=== PATIENT | female | born 1950 | race Caucasian/White ===

== ENCOUNTER 2017-07-12 10:17 | Inpatient (IN) | payer MEDICARE, OTHER, MEDICAID ==
[~2017-07-12] VITALS: Ht 160 cm; Wt 107.0 kg
[2017-07-12 10:36] LABS: BASOPHILS % (AUTO) 0.7 % (0.0-2.0); EOSINOPHILS # (AUTO) 0.1 K/uL (0.0-0.7); EOSINOPHILS % (AUTO) 1.4 % (0.0-7.0); HEMATOCRIT 28.7 % (31.2-41.9); HEMOGLOBIN 9.5 g/dL (10.9-14.3); LYMPHOCYTES # (AUTO) 1.7 K/uL (20.0-40.0); LYMPHOCYTES % (AUTO) 25.7 % (20.5-51.5); MEAN CORPUSCULAR HEMOGLOBIN 27.3 uug (24.7-32.8); MEAN CORPUSCULAR HGB CONC 33 g/dL (32.3-35.6); MEAN CORPUSCULAR VOLUME 82.4 fL (75.5-95.3); MONOCYTES # (AUTO) 0.6 K/uL (2.0-10.0); MONOCYTES % (AUTO) 9.4 % (0.0-11.0); NEUTROPHILS # (AUTO) 4.1 K/uL (1.8-8.9); NEUTROPHILS % (AUTO) 62.8 % (38.5-71.5); PLATELET COUNT (AUTO) 264 K/uL (179-408); RED BLOOD CELL COUNT(AUTO) 3.48 MIL/uL (3.63-4.92); WHITE BLOOD COUNT (AUTO) 6.5 K/uL (3.8-11.8)
[2017-07-12 10:37] LABS: *BILIRUBIN,URIN NEGATIVE (NEGATIVE); *BLOOD, URINE 2+ (NEGATIVE); *CLARITY,URINE CLEAR (CLEAR); *COLOR,URINE YELLOW (YELLOW); *KETONES,URINE NEGATIVE (NEGATIVE); *PROTEIN,URINE NEGATIVE (NEGATIVE); *UROBILINOGEN,URINE 0.2 E.U./dl (NORMAL); LEUKOCYTE ESTERASE ,URINE 1+ (NEGATIVE); NITRITE, URINE NEGATIVE (NEGATIVE); UGLUCOSE NEGATIVE (NEGATIVE)
[2017-07-12] MEDS ORDERED: ZOLP5TAB2 PO (10:41)
[2017-07-12] MEDS ORDERED: OMEP20CA10 PO (10:41)
[2017-07-12] MEDS ORDERED: LACT10SO PO (10:41)
[2017-07-12] MEDS ORDERED: ALBU2.5V13 NEB (10:41)
[2017-07-12] MEDS ORDERED: PREG75CA PO (10:41)
[2017-07-12 10:47] LABS: CARBON DIOXIDE 27 mmol/L (21-32); CHLORIDE 102 mmol/L (98-107); CREATININE 1.6 mg/dL (0.6-1.3); GLUCOSE 103 mg/dL (74-106); POTASSIUM 4.6 mmol/L (3.5-5.1); UREA NITROGEN, BLOOD 34 mg/dL (7-18)
[2017-07-12 10:50] LABS: ETHANOL < 3 MG/DL (0-0)
[2017-07-12 10:52] LABS: *AMPHETAMINE, URINE NEGATIVE (NEGATIVE); *BARBITURATE, URINE NEGATIVE (NEGATIVE); *CANNABINOID, URINE NEGATIVE (NEGATIVE); *COCCAINE, URINE NEGATIVE (NEGATIVE); *OPIATE, URINE POSITIVE (NEGATIVE); *PHENCYCLIDINE SCREEN,URINE NEGATIVE (NEGATIVE)
[2017-07-12 10:53] LABS: ALANINE AMINOTRANSFERASE 15 U/L (14-59); ALKALINE PHOSPHATASE 122 U/L (50-136); ASPARTATE AMINOTRANSFERASE 10 U/L (15-37); BILIRUBIN,DIRECT 0.1 mg/dL (0.0-0.2); BILIRUBIN,TOTAL 0.2 mg/dL (0.2-1.0); TOTAL PROTEIN, SERUM 7.1 g/dL (6.4-8.2)
[2017-07-12 10:55] LABS: ACETAMINOPHEN < 2.0 ug/mL (10-30)
[2017-07-12 10:56] LABS: BACTERIA,URINE FEW /HPF (NONE SEEN); RBC,URINE 0-3 /HPF (0-3); SQUAMOUS EPITHELIAL CELL,UR FEW /HPF (NONE SEEN)
--- NOTE | 2017-07-12 11:10 | NUR ---
Pt resting in [facility] with NAD noted, SBAR report given to Rosy HERNANDEZ in [facility] via telephone.
[2017-07-12] MEDS ORDERED: LEVO175T2 PO (11:22)
[2017-07-12] MEDS ORDERED: PROM6.25 PO (11:22)
[2017-07-12] MEDS ORDERED: CYAN10009 PO (11:22)
[2017-07-12] MEDS ORDERED: DIPH1TAB PO (11:22)
[2017-07-12] MEDS ORDERED: SENN-167 PO (11:22)
[2017-07-12] MEDS ORDERED: METF500T PO (11:22)
[2017-07-12] MEDS ORDERED: FERR325T28 PO (11:22)
[2017-07-12] MEDS ORDERED: POTA20LI4 PO (11:22)
[2017-07-12] MEDS ORDERED: HYDR-552 PO (11:22)
[2017-07-12] MEDS ORDERED: ONDA4TAB5 PO (11:22)
[2017-07-12] MEDS ORDERED: IPRA3AMP IH (11:22)
[2017-07-12] MEDS ORDERED: OXYB5TAB11 PO (11:22)
[2017-07-12] MEDS ORDERED: DULO60CA45 PO (11:22)
[2017-07-12] MEDS ORDERED: ACET-73 PO (11:22)
[2017-07-12] MEDS ORDERED: MAG30ORA GT (11:22)
[2017-07-12] MEDS ORDERED: DEXT15DR6 EACHEYE (11:22)
[2017-07-12] MEDS ORDERED: ERGO500040 PO (11:22)
[2017-07-12] MEDS ORDERED: DICL75TA5 PO (11:22)
[2017-07-12] MEDS ORDERED: ALBU18HF2 IH (11:22)
--- NOTE | 2017-07-12 11:36 | NUR ---
Per pt is medically clear and may be trans to [facility].
--- NOTE | 2017-07-12 11:50 | NUR ---
Pt trans to [facility], NAD noted.
--- NOTE | 2017-07-12 12:15 | NUR ---
patient in from [facility] via wheel chair. AAOX1-2. refusing with admission protocols. refusing to answer most of the questions. Stating "I don't wanna be here" . vitals signs stable no c/of pain. Both psychiatrist and attending physician notified by Charge R.N.
--- NOTE | 2017-07-12 12:27 | NUR ---
1215: CALLED DR. HERNANDEZ [facility]ERG[facility] PAGER FOR ADMITTING ORDER, BUT SAYS THE NUMBER IS NOT A WORKING NUMBER. CALLED 'S OFFICE AT [phone] SPOKE WITH AMANDA, SAID IS WITH ANOTHER PATIENT ADVISED TO CALL BACK AND LEAVE A MESSAGE. LEFT MESSAGE.
--- NOTE | 2017-07-12 12:36 | NUR ---
1230: LEFT MESSAGE TO [employer] [facility].
--- NOTE | 2017-07-12 12:49 | NUR ---
RECEIVED A CALL BACK FROM DR. JOHNSON.
[2017-07-12] MEDS ORDERED: MAGNESIUM HYDROXIDE 30 ML LIQUID UDC PO PRN (14:00)
[2017-07-12] MEDS ORDERED: ACETAMINOPHEN 325 MG TABLET PO PRN (14:00)
[2017-07-12] MEDS ORDERED: LORAZEPAM 0.5 MG TABLET PO PRN (14:00)
[2017-07-12] MEDS ORDERED: LORAZEPAM 1 MG TABLET PO PRN (14:15)
[2017-07-12 15:12] VITALS: BP 133/67
[2017-07-12] MEDS ORDERED: Medication Not On Formulary EA (Lactulose (Duphalac) 30 ML) PO PRN (18:30)
[2017-07-12] MEDS ORDERED: ONDANSETRON HCL 4 MG TABLET PO PRN (18:30)
[2017-07-12] MEDS ORDERED: ERGOCALCIFEROL 50,000 UNIT CAPSULE PO SCH (18:30)
[2017-07-12] MEDS ORDERED: ALBUTEROL SULFATE 8 GM HFA.AER.AD IH PRN (18:30)
[2017-07-12] MEDS ORDERED: LEVOTHYROXINE SODIUM 175 MCG TABLET PO SCH (18:30)
--- NOTE | 2017-07-12 18:46 | NUR ---
Psychiatrist Dr. Riveraw in to examine patient and orders to let social science analyst find placement for patient. message left for social science analyst by Demetra Lin. and will also endorse to incoming shift.
[2017-07-12] MEDS ORDERED: ALBUTEROL SULFATE 2.5 MG/3 ML NEBU NEB PRN (19:00)
[2017-07-12] MEDS ORDERED: LACTULOSE 20 G/30 ML LIQUID UDC PO PRN (19:15)
[2017-07-12 20:26] VITALS: BP 174/75
[2017-07-12] MEDS: METFORMIN HCL 500 MG TABLET PO SCH (21:02)
[2017-07-12] MEDS: OXYBUTYNIN CHLORIDE 5 MG TABLET PO SCH (21:03)
[2017-07-12] MEDS: PREGABALIN 25 MG CAPSULE PO SCH (21:03)
[2017-07-12] MEDS: DICLOFENAC 75 MG TABLET.DR PO SCH (21:03)
[2017-07-12] MEDS: CYANOCOBALAMIN 1,000 MCG TABLET PO SCH (21:05)
[2017-07-12] MEDS: ARIPIPRAZOLE 2 MG TABLET PO SCH (21:05)
[2017-07-12] MEDS: FERROUS SULFATE 325 MG TABEC PO SCH (21:07)
[2017-07-12 21:41] VITALS: BP 118/61
[2017-07-13] MEDS: MAG HYDROX/AL HYDROX/SIMETH 30 ML LIQUID UDC PO PRN (00:01)
--- NOTE | 2017-07-13 00:39 | NUR ---
Received patient laying comfortably in bed. Son at beside. A&O x 4. Walks with a front wheel walker. Noted bilateral foot and ankle edema. Safety initiated. bed is in low and locked position. Will closely monitor.
[2017-07-13] MEDS: PANTOPRAZOLE SODIUM 40 MG TABLET.DR PO SCH (06:04)
[2017-07-13] MEDS: LEVOTHYROXINE SODIUM 175 MCG TABLET PO SCH (06:04)
--- NOTE | 2017-07-13 06:12 | NUR ---
Patient slept t/o shift. A total of 9 hours. Patient was med compliant. C/O heart burn, meds given, stated relief. No behavioral issues. Patient was cooperative. B/P was elevated early on the shift. Re-checked, was stable. Urinated well t/o shift. Ambulated with a FWW. Noted bilateral foot edema. Non pitting. Safety and comfort measures maintained t/o shift. Room was kept clutter free. All meds given as ordered. All needs met.
[2017-07-13 07:11] LABS: BASOPHILS # (AUTO) 0.1 K/uL (0.0-8.0); BASOPHILS % (AUTO) 1.1 % (0.0-2.0); EOSINOPHILS # (AUTO) 0.1 K/uL (0.0-0.7); EOSINOPHILS % (AUTO) 2.6 % (0.0-7.0); HEMOGLOBIN 9.7 g/dL (10.9-14.3); LYMPHOCYTES # (AUTO) 1.6 K/uL (20.0-40.0); LYMPHOCYTES % (AUTO) 28.7 % (20.5-51.5); MEAN CORPUSCULAR HEMOGLOBIN 26.6 uug (24.7-32.8); MEAN CORPUSCULAR HGB CONC 32 g/dL (32.3-35.6); MEAN CORPUSCULAR VOLUME 82.2 fL (75.5-95.3); MONOCYTES # (AUTO) 0.4 K/uL (2.0-10.0); MONOCYTES % (AUTO) 7.2 % (0.0-11.0); NEUTROPHILS # (AUTO) 3.4 K/uL (1.8-8.9); NEUTROPHILS % (AUTO) 60.4 % (38.5-71.5); PLATELET COUNT (AUTO) 290 K/uL (179-408); RED BLOOD CELL COUNT(AUTO) 3.65 MIL/uL (3.63-4.92); WHITE BLOOD COUNT (AUTO) 5.6 K/uL (3.8-11.8)
[2017-07-13 08:00] VITALS: BP 156/69
[2017-07-13 08:08] LABS: BILIRUBIN,TOTAL 0.2 mg/dL (0.2-1.0); CREATININE 1.4 mg/dL (0.6-1.3); POTASSIUM 4.9 mmol/L (3.5-5.1); TOTAL PROTEIN, SERUM 6.9 g/dL (6.4-8.2)
[2017-07-13] MEDS ORDERED: Medication Not On Formulary EA (Omeprazole 1 CAP) PO SCH (09:00)
[2017-07-13] MEDS: ARIPIPRAZOLE 2 MG TABLET PO SCH (09:05)
[2017-07-13] MEDS: CYANOCOBALAMIN 1,000 MCG TABLET PO SCH (09:05)
[2017-07-13] MEDS: PREGABALIN 25 MG CAPSULE PO SCH ×2 (09:05→17:21)
[2017-07-13] MEDS: METFORMIN HCL 500 MG TABLET PO SCH ×2 (09:05→17:21)
[2017-07-13] MEDS: DULOXETINE 60 MG CAPSULE.DR PO SCH (09:05)
[2017-07-13] MEDS: FERROUS SULFATE 325 MG TABEC PO SCH (09:06)
[2017-07-13] MEDS: OXYBUTYNIN CHLORIDE 5 MG TABLET PO SCH ×2 (09:06→17:21)
[2017-07-13] MEDS: DICLOFENAC 75 MG TABLET.DR PO SCH (09:07)
[2017-07-13] MEDS: CEPHALEXIN MONOHYDRATE 500 MG CAPSULE PO SCH ×3 (11:04→22:17)
--- NOTE | 2017-07-13 11:37 | NUR ---
NEW ORDERS NOTED FROM DR TYSON AT THIS TIME.
[2017-07-13] MEDS: AMLODIPINE 5 MG TABLET PO SCH (14:06)
--- NOTE | 2017-07-13 14:07 | NUR ---
PATIENT REMAIN ON ANTIBIOTICS ORDERED FOR URINARY TRACT INFECTION WITH NO ADVERSE OR ALLERGIC REACTIONS AT THIS TIME.PATIENT NOTIFIED OF NEW ORDER TO START BLOOD SUGAR CHECKS TWO TIMES A DAY BEFORE BREAKFAST AND BEFORE DINNER AND SHE EXPRESSED UNDERSTANDING.
[2017-07-13 16:00] VITALS: BP 160/67
[2017-07-13] MEDS: BLOOD SUGAR DIAGNOSTIC 1 EACH STRIP VI SCH (17:21)
[2017-07-13 17:34] LABS: *CREATININE,URINE 54.6 mg/dL (30-125); *URINE TOTAL PROTEIN RANDOM < 6.0 mg/dL (<150/24HR)
[2017-07-13 17:56] LABS: *BILIRUBIN,URIN NEGATIVE (NEGATIVE); *BLOOD, URINE NEGATIVE (NEGATIVE); *CLARITY,URINE CLEAR (CLEAR); *COLOR,URINE YELLOW (YELLOW); *KETONES,URINE NEGATIVE (NEGATIVE); *PROTEIN,URINE NEGATIVE (NEGATIVE); *UROBILINOGEN,URINE 0.2 E.U./dl (NORMAL); LEUKOCYTE ESTERASE ,URINE TRACE (NEGATIVE); NITRITE, URINE NEGATIVE (NEGATIVE); PH,URINE 5.5 (5.0-8.0); UGLUCOSE NEGATIVE (NEGATIVE)
--- NOTE | 2017-07-13 18:00 | NUR ---
RESTING IN BED AT THIS TIME DENIES PAIN OR DISCOMFORTS BLOOD SUGAR IS 114
[2017-07-13 19:51] LABS: RBC,URINE 0-3 /HPF (0-3); SQUAMOUS EPITHELIAL CELL,UR MODERATE /HPF (NONE SEEN)
[2017-07-13 20:00] VITALS: BP 133/70
[2017-07-13] MEDS: HYDROCODONE/APAP 5-325MG TABLET PO PRN (20:35)
--- NOTE | 2017-07-13 23:17 | NUR ---
PATIENT RECEIVED IN BED AWAKE. PATIENT CALM, AND COOPERATIVE. PATIENT COMPLAINT WITH MEDICATION. IN NO APPARENT DISTRESS WILL CONTINUE TO MONITOR. NO AGGRESSIVE OR COMBATIVE BEHAVIOR NOTED WILL CONTINUE TO MONITOR. PATIENT STATED HAVING 8/10 PAIN TO RIGHT HAND, NORCO 5/325MG GIVEN ORDERED WILL CONTINUE TO MONITOR. BED IN LOWEST POSITION, BED LOCKED, AND BED ALARM ON WHILE IN BED.
[2017-07-14] MEDS: MAG HYDROX/AL HYDROX/SIMETH 30 ML LIQUID UDC PO PRN ×3 (00:16→20:46)
[2017-07-14] MEDS: LEVOTHYROXINE SODIUM 175 MCG TABLET PO SCH (06:33)
[2017-07-14] MEDS: CEPHALEXIN MONOHYDRATE 500 MG CAPSULE PO SCH ×3 (06:33→21:00)
[2017-07-14] MEDS: PANTOPRAZOLE SODIUM 40 MG TABLET.DR PO SCH (06:33)
[2017-07-14] MEDS: BLOOD SUGAR DIAGNOSTIC 1 EACH STRIP VI SCH ×2 (06:52→17:08)
[2017-07-14 07:30] VITALS: BP 134/52
[2017-07-14 07:36] LABS: BASOPHILS # (AUTO) 0.1 K/uL (0.0-8.0); BASOPHILS % (AUTO) 1.1 % (0.0-2.0); EOSINOPHILS # (AUTO) 0.2 K/uL (0.0-0.7); HEMATOCRIT 31.7 % (31.2-41.9); HEMOGLOBIN 10.3 g/dL (10.9-14.3); MEAN CORPUSCULAR HEMOGLOBIN 26.9 uug (24.7-32.8); MEAN CORPUSCULAR HGB CONC 32 g/dL (32.3-35.6); MEAN CORPUSCULAR VOLUME 82.9 fL (75.5-95.3); MONOCYTES # (AUTO) 0.4 K/uL (2.0-10.0); NEUTROPHILS # (AUTO) 3.1 K/uL (1.8-8.9); NEUTROPHILS % (AUTO) 53.9 % (38.5-71.5); PLATELET COUNT (AUTO) 324 K/uL (179-408); RED BLOOD CELL COUNT(AUTO) 3.83 MIL/uL (3.63-4.92); WHITE BLOOD COUNT (AUTO) 5.8 K/uL (3.8-11.8)
[2017-07-14 07:59] LABS: BILIRUBIN,TOTAL 0.2 mg/dL (0.2-1.0); CREATININE 1.3 mg/dL (0.6-1.3); MAGNESIUM 2.1 mg/dL (1.8-2.4); PHOSPHOROUS 3.6 mg/dL (2.5-4.9); POTASSIUM 4.5 mmol/L (3.5-5.1); TOTAL PROTEIN, SERUM 7.5 g/dL (6.4-8.2)
[2017-07-14] MEDS ORDERED: ERGOCALCIFEROL 50,000 UNIT CAPSULE PO SCH (09:00)
[2017-07-14] MEDS: DULOXETINE 60 MG CAPSULE.DR PO SCH (09:03)
[2017-07-14] MEDS: AMLODIPINE 5 MG TABLET PO SCH (09:03)
[2017-07-14] MEDS: OXYBUTYNIN CHLORIDE 5 MG TABLET PO SCH ×2 (09:04→17:24)
[2017-07-14] MEDS: ARIPIPRAZOLE 2 MG TABLET PO SCH (09:04)
[2017-07-14] MEDS: FERROUS SULFATE 325 MG TABEC PO SCH (09:04)
[2017-07-14] MEDS: METFORMIN HCL 500 MG TABLET PO SCH (09:04)
[2017-07-14] MEDS: PREGABALIN 25 MG CAPSULE PO SCH ×2 (09:04→17:24)
[2017-07-14] MEDS: HYDROCODONE/APAP 5-325MG TABLET PO PRN ×2 (13:55→20:46)
--- NOTE | 2017-07-14 14:56 | NUR ---
Initial DC Plan: Patient currently resides at [facility] [[address], [place] [address]; ]. CATHY spoke with Ramón at [facility] who stated the facility cannot accept patient back due to aggressive behavior. CATHY will follow up with MD, patient, and patient's son Uche [[phone]] to discuss most appropriate discharge plans. SW will form a safe and proper discharge.
[2017-07-14 16:24] VITALS: BP 135/62
--- NOTE | 2017-07-14 18:26 | NUR ---
RECEIVED Pt IN DAY ROOM, A/O X 3, CLEAR SPEECH, PLEASANT, CALM, COMPLIANT WITH MEDS AND CARE STAFF. DR. HERNANDEZ SPOKE WITH Pt AND IS ON A VOLUNTARY HOLD UNTIL PLACEMENT IS CLEAR AND AGREED UPON. Pt REPORTED 8/10 PAIN ON LOWER BACK, NORCO 5/325 PO PRN WAS GIVEN @ 1355. NO AGGRESSIVE BEHAVIOR NOTED.
[2017-07-14 20:04] VITALS: BP 112/62
[2017-07-14] MEDS: ZOLPIDEM 5 MG TABLET PO PRN (22:37)
--- NOTE | 2017-07-15 05:44 | NUR ---
Patient slept 8.5 hours. No acute distress noted. Med complaint. Cooperative. No further behavioral issues observed. C/O back pain, meds given, stated relief. Noted edema on bilateral lower edema. BLE Elevated. Vital signs stable. All meds given as ordered. All needs met. Room was kept clutter free. Bed is in low and locked position.
[2017-07-15] MEDS: CEPHALEXIN MONOHYDRATE 500 MG CAPSULE PO SCH ×3 (06:01→21:05)
[2017-07-15] MEDS: PANTOPRAZOLE SODIUM 40 MG TABLET.DR PO SCH (06:01)
[2017-07-15] MEDS: LEVOTHYROXINE SODIUM 175 MCG TABLET PO SCH (06:01)
[2017-07-15] MEDS: BLOOD SUGAR DIAGNOSTIC 1 EACH STRIP VI SCH ×2 (06:30→15:50)
[2017-07-15 07:30] VITALS: BP 123/55
[2017-07-15] MEDS: PREGABALIN 25 MG CAPSULE PO SCH ×2 (08:26→16:07)
[2017-07-15] MEDS: DULOXETINE 60 MG CAPSULE.DR PO SCH (08:26)
[2017-07-15] MEDS: ARIPIPRAZOLE 2 MG TABLET PO SCH (08:26)
[2017-07-15] MEDS: FERROUS SULFATE 325 MG TABEC PO SCH (08:26)
[2017-07-15] MEDS: OXYBUTYNIN CHLORIDE 5 MG TABLET PO SCH ×2 (08:26→16:07)
[2017-07-15] MEDS: AMLODIPINE 5 MG TABLET PO SCH (08:27)
[2017-07-15] MEDS: HYDROCODONE/APAP 5-325MG TABLET PO PRN ×2 (11:33→21:05)
[2017-07-15 15:36] VITALS: BP 121/53
[2017-07-15] MEDS: MAG HYDROX/AL HYDROX/SIMETH 30 ML LIQUID UDC PO PRN ×2 (16:07→22:38)
--- NOTE | 2017-07-15 18:34 | NUR ---
PT IS CALM AND COOPERATIVE WITH ALL NURSING INTERVENTIONS AND PLAN OF CARE. PT IS ABLE TO FOLLOW COMMANDS AND AWARE ABOUT HER STATUS. ALL SAFETY NEEDS ARE MET.
[2017-07-15 19:53] VITALS: BP 111/56
[2017-07-15] MEDS: ZOLPIDEM 5 MG TABLET PO PRN (22:49)
[2017-07-16] MEDS: CEPHALEXIN MONOHYDRATE 500 MG CAPSULE PO SCH ×2 (05:59→14:03)
[2017-07-16] MEDS: LEVOTHYROXINE SODIUM 175 MCG TABLET PO SCH (06:00)
[2017-07-16] MEDS: PANTOPRAZOLE SODIUM 40 MG TABLET.DR PO SCH (06:00)
--- NOTE | 2017-07-16 06:16 | NUR ---
No significant events overnight. Patient remained calm and cooperative throughout shift. A/O. Compliant with all care and medical treatment. Stated aching pain to right wrist, managed with PRN medication given once at 2100. Per patient request, Maalox given once as ordered for heartburn and Ambien given one time for insomnia at 2245. Total amount of sleep: 5.5 hours
[2017-07-16] MEDS: BLOOD SUGAR DIAGNOSTIC 1 EACH STRIP VI SCH (06:47)
[2017-07-16 07:18] LABS: BASOPHILS # (AUTO) 0.1 K/uL (0.0-8.0); EOSINOPHILS # (AUTO) 0.2 K/uL (0.0-0.7); EOSINOPHILS % (AUTO) 2.8 % (0.0-7.0); HEMATOCRIT 33.7 % (31.2-41.9); HEMOGLOBIN 10.7 g/dL (10.9-14.3); LYMPHOCYTES # (AUTO) 1.9 K/uL (20.0-40.0); MEAN CORPUSCULAR HEMOGLOBIN 26.2 uug (24.7-32.8); MEAN CORPUSCULAR HGB CONC 32 g/dL (32.3-35.6); MEAN CORPUSCULAR VOLUME 82.4 fL (75.5-95.3); MONOCYTES # (AUTO) 0.4 K/uL (2.0-10.0); MONOCYTES % (AUTO) 7.5 % (0.0-11.0); NEUTROPHILS # (AUTO) 3.2 K/uL (1.8-8.9); NEUTROPHILS % (AUTO) 55.7 % (38.5-71.5); PLATELET COUNT (AUTO) 314 K/uL (179-408); RED BLOOD CELL COUNT(AUTO) 4.09 MIL/uL (3.63-4.92); WHITE BLOOD COUNT (AUTO) 5.7 K/uL (3.8-11.8)
[2017-07-16 07:33] LABS: BILIRUBIN,TOTAL 0.3 mg/dL (0.2-1.0); CREATININE 1.3 mg/dL (0.6-1.3); MAGNESIUM 2.2 mg/dL (1.8-2.4); PHOSPHOROUS 3.4 mg/dL (2.5-4.9); POTASSIUM 4.6 mmol/L (3.5-5.1)
[2017-07-16 07:40] VITALS: BP 109/43
[2017-07-16 07:42] LABS: THYROID STIMULATING HORMONE 1.104 mIU/mL (0.358-3.740)
[2017-07-16] MEDS: DULOXETINE 60 MG CAPSULE.DR PO SCH (08:00)
[2017-07-16] MEDS: PREGABALIN 25 MG CAPSULE PO SCH (08:00)
[2017-07-16] MEDS: FERROUS SULFATE 325 MG TABEC PO SCH (08:00)
[2017-07-16] MEDS: OXYBUTYNIN CHLORIDE 5 MG TABLET PO SCH (08:00)
[2017-07-16] MEDS: ARIPIPRAZOLE 2 MG TABLET PO SCH (08:00)
[2017-07-16 08:01] VITALS: BP 114/55
[2017-07-16] MEDS: AMLODIPINE 5 MG TABLET PO SCH (08:01)
--- NOTE | 2017-07-16 10:18 | NUR ---
DC Note: Patient will be discharged to [facility] [[address], [place] [address]; ] via ambulance today. CATHY spoke with Dolly at [facility] to confirm discharge plans. Patient is aware and agreeable to discharge plans. Patient is alert and oriented x4 and denies SI and HI. CATHY spoke with patient's son Uche Herbert [[phone]] who is aware and agreeable to discharge plans. Patient will follow up with Dr. Delaney (Supervisor [employer]) and Dr. Aguirre (Psychiatrist) at the facility.
[2017-07-16] MEDS: HYDROCODONE/APAP 5-325MG TABLET PO PRN (14:07)
--- NOTE | 2017-07-16 15:47 | NUR ---
D/C ORDERS RECEIVED NOTED AND CARRIED OUT,D/C INSTRUCTION AND RN REPORT GIVEN TO THE HALFWAY TO RN DOUGIE ,AND PT PT VERBALIZED UNDERSTANDING ALL THE INSTRUCTION.PT VALUABLE RETURN TO THE PT,PT LEFT THE FACILITY VIA AMBULANCES IN STABLE CONDITION
== END 2017-07-16 15:55 | DRG 885 ==
LOC: ER 10:17 → GPS 11:39
PROVIDERS: ADMIT Psychiatry & Neurology Psychiatry; ATTEND Internal Medicine
PROC: 0HBRXZZ Excision of Toe Nail, External Approach (ICD-10-PCS; principal; 2017-07-12)
DX: F31.9 Bipolar disorder, unspecified (principal); N17.0 Acute kidney failure with tubular necrosis; N18.3 Chronic kidney disease, stage 3 (moderate); E44.0 Moderate protein-calorie malnutrition; Z68.41 Body mass index [BMI] 40.0-44.9, adult; N39.0 Urinary tract infection, site not specified; E66.01 Morbid (severe) obesity due to excess calories; E67.8 Other specified hyperalimentation; E03.9 Hypothyroidism, unspecified; Z79.899 Other long term (current) drug therapy; Z79.84 Long term (current) use of oral hypoglycemic drugs; E11.22 Type 2 diabetes mellitus with diabetic chronic kidney disease; I12.9 Hypertensive chronic kidney disease with stage 1 through stage 4 chronic kidney disease, or unspecified chronic kidney disease; Z65.3 Problems related to other legal circumstances; F41.9 Anxiety disorder, unspecified; D63.1 Anemia in chronic kidney disease; J44.9 Chronic obstructive pulmonary disease, unspecified; Z79.51 Long term (current) use of inhaled steroids; M19.90 Unspecified osteoarthritis, unspecified site; E78.5 Hyperlipidemia, unspecified; E11.51 Type 2 diabetes mellitus with diabetic peripheral angiopathy without gangrene; L60.8 Other nail disorders; M77.52 Other enthesopathy of left foot and ankle; M77.51 Other enthesopathy of right foot and ankle; Z99.3 Dependence on wheelchair; M21.619 Bunion of unspecified foot
CPT/HCPCS: 36415; 80307; 83735; 84100; 84156; 84300; 84443; 85025; 87086; 93005; A4663; G0480; G0480-TC